=== PATIENT | male | born 1950 ===

== ENCOUNTER → 2024-07-28 11:42 | Outpatient (BNVA) | payer MEDICARE, SELFPAY | PROVIDERS: PCP Nurse Practitioner Acute Care; Referring Provider Nurse Practitioner Acute Care; Visit Provider Surgery | DX: R10.9 Unspecified abdominal pain (principal); K92.0 Hematemesis; K57.90 Diverticulosis of intestine, part unspecified, without perforation or abscess without bleeding; I10 Essential (primary) hypertension | CPT/HCPCS: 99203 ==

== ENCOUNTER 2024-07-28 12:54 | Outpatient (CLI) | payer MEDICARE, SELFPAY ==
[2024-07-28 13:01] LABS: Abs Immature Grans 0.01 10^3/uL (0.0-0.06); Absolute Basophil Count 0.03 10^3/uL (0.0-0.2); Absolute Eosinophil Count 0.06 10^3/uL (0.0-0.7); Absolute Lymphocyte Count 1.84 10^3/uL (1.2-3.4); Basophils % 0.7 %; Eosinophils % 1.4 %; HCT 36.2 % (40.0-50.0); HGB 12.7 g/dL (13.5-17.5); Immature Grans % 0.2 %; Lymphocytes % 43.4 %; MCH 33.5 pg (27.0-33.0); MCHC 35.1 % (32.0-36.0); MCV 96 fL (80-95); Monocytes % 9.4 %; Neutrophils % 44.9 %; Platelet Count 181 10^3/uL (130-400); RBC 3.79 10^6/uL (4.36-5.78); RDW 13.3 % (11.8-14.1); WBC 4.24 10^3/uL (4.4-10.8)
[2024-07-28 13:10] LABS: Prothrombin Time 10.4 sec (9.1-11.1)
[2024-07-28 13:35] LABS: ALT 28 U/L (16-63); AST 23 U/L (15-37); Albumin 3.7 g/dL (3.4-5.0); Alkaline Phosphatase 42 U/L (46-116); Anion Gap 11.2 mmol/L (3-11); BUN 15 mg/dL (7-18); Bilirubin, Total 0.82 mg/dL (0.2-1.0); CO2 24.8 mmol/L (21.0-32.0); CREATININE 1.1 mg/dL (0.70-1.30); Calcium 8.9 mg/dL (8.5-10.1); Chloride 108 mmol/L (98-107); Estimated GFR 70.01 (mL/min/1.73m2); Ferritin 415 ng/mL (26-388); Glucose 100 mg/dL (74-106); Magnesium 2.3 mg/dL (1.8-2.4); Potassium 4.3 mmol/L (3.5-5.1); Sodium 144 mmol/L (136-145); Total Protein 7.4 g/dL (6.4-8.2)
[2024-07-28 13:47] LABS: GGT 45 U/L (15-85)
== END 2024-07-28 12:55 | disposition home or self-care (01) ==
LOC: LBO 12:56
PROVIDERS: PCP Nurse Practitioner Acute Care; Visit Provider Surgery
DX: I10 Essential (primary) hypertension (principal); E53.8 Deficiency of other specified B group vitamins; K92.0 Hematemesis; K57.90 Diverticulosis of intestine, part unspecified, without perforation or abscess without bleeding; R10.9 Unspecified abdominal pain
CPT/HCPCS: 36415; 80053; 99203; 82728; 82977; 83735; 85025; 85610

== ENCOUNTER 2024-08-02 10:18 | Day surgery (SDC) | payer MEDICARE, SELFPAY ==
--- NOTE | 2024-08-01 21:21 | COLE_ITS ---
Date of service: 08/02/24 Time of Service: 15:36 Colonoscopy Report Date of procedure: 08/02/24 Pre-op diagnosis general: LLQ abdominal pain, C&D,mild anemia Post-op diagnosis procedure note: other (Diverticula and polyps) Surgeon: Cristal Dupree Anesthesia Type: General:No Airway Estimated blood loss (mL): 3 Pathology: other Complications: None Disposition: same day Prep: Miralax/Dulcolax Retraction Time: 27 Findings: After informed consent was obtained, explaining risks of the procedure, including but not limits to: bleeding, infections, complications of anesthesia, perforations (which may require antibiotics and /or surgery and stay in the hospital), and abdominal pain/cramping. The patient was taken to the procedure room and placed in a left decubitous position. Monitors were applied and a time out was done. The patients name, date of , procedure, allergies to medications and metal in their body was reviewed. The patient was then sedated. Once sedated and comfortable a rectal exam was done. External exam was normal. Internal exam revealed a normal sphincter tone and no palpable masses. The prostate bi-lobed nodulariy. F/u w/ Urology is reccomeneded. The previously lubricated Olympus scope was then introduced (see RN notes for scope number) and retrofelexed. No internal hemorrhoids were identified. The scope was then advanced to the cecum without difficulty. The TI and appendiceal orifice were identified. The scope was then slowly retracted over 27 minutes back into the rectum. Polyps: Had 13 polyps that we took out today. He had 4 polyps in the cecum. X 1 polyp was flat and 1 cm in size. 2 of the polyps were flat and 1.5 cm in size. The fourth polyp was flat and 0.5 cm in size. All of these polyps were removed with a cold snare. 2 clips are placed over the larger defects. And x 2 polyps at 90 cm. One of them was 1 cm pedunculated and this was removed with a cold snare. A clip was placed across the defect. There was 0.5 cm in size and flat. This is removed with a cold biopsy forcep. Had 2 polyps removed at 80 cm. One of them was 0.75 cm and pedunculated. This is removed with a cold snare. A clip was placed across the defect. Another is 0.5 cm in size. This is removed with a cold biting snare. He had a flat 0.5 cm polyp at 40 cm. This is removed with a cold biting forcep. He had 3 polyps in the rectum. 1 is 1 cm and pedunculated. This is removed with a cold snare. He had another this 0.75 cm in flat. This is removed with a cold snare. He had another that is 0.5 cm I am flat. This is removed with cold biting forcep. All specimens are retrieved and no bleeding is noted. Diverticula: pt had a moderate amount of small mouthed diverticula in the sigmoid colon. There were no signs of active bleeding or infection. The mucosa is pink and healthy w/ a normal vascular pattern. The scope was removed, and the patient was woken up and taken back to Same day surgery in stable condition. Patient did receive a dose of IV antibiotics in same-day surgery to prevent post-polypectomy syndrome. The patient tolerated the procedure well and there were no immediate complications. Follow up: The patient should follow up in 1-3 years, path pending, unless they develop changes in bowel habits or other new gastrointestinal complaints. Waterproof Bowel Prep Waterproof Bowel Prep Right Colon: 3 Left Colon: 3 Transverse Colon: 3 Total Score: 9
--- NOTE | 2024-08-01 21:24 | PDOC.DSDIS_ITS ---
Date of service: 08/02/24 Time of Service: 13:48 Discharge Plan Disposition Patient Disposition: Home Condition: Good Discharge Details Reason For Visit: stomach and colon scope Attending Provider: Cristal Dupree Primary Care Provider: Chito Alex Home Meds and New Rx's Prescriptions: Continued mecobalamin (vitamin B12) 1,000 mcg tablet,chewable 1,000 mcg PO DAILY lisinopril 10 mg tablet 10 mg PO DAILY Discontinued polyethylene glycol 3350 17 gram/dose powder 238 g PO ONCE Qty: 238 0RF Rx Instructions: take per colonoscopy instructions bisacodyl [Dulcolax (bisacodyl)] 5 mg tablet,delayed release (DR/EC) 5 mg PO ONCE Qty: 4 0RF Rx Instructions: take per colonoscopy instructions Discharge Instructions Additional Instructions: [facility] Colonoscopy Post- Op Instructions Instructions for Everyone who is given Anesthesia: For your safety, please do the following for the next twenty-four (24) hours: *Do Not operate a motor vehicle (car, truck, motorcycle, etc.) *Do Not drink alcoholic beverages or use any recreational drugs for the first 24 hours or while taking pain medications. The medications in your body may have a reaction that can be dangerous. *Do Not make any important decisions or sign any important papers. Findings: Hiatal hernia Diverticular disease-make sure you are moving your bowels and avoid straining. If you have problems with constipation/straining then we do recommend you start a fiber product daily such as Metamucil. Extensive polyposis- repeat colonoscopy in 2 to 3 years Nodule on prostate-recommend follow-up with urology 1. No lifting over 20 pounds or strenuous activity for the first 24 hours after your procedure. After 24 hours there are no restrictions on your activity but you may feel fatigued for a few days. 2. After you arrive home you may have a light meal and return to your normal diet as you can tolerate it without feeling sick to your stomach. 3. You may have a bloated, gaseous feeling in your belly (abdomen) after a colonoscopy. Passing gas and belching will help. Walking or lying down on your left side with your knees flexed may relieve the discomfort. Call the office at [phone] (Office) or [phone] (Hospital) right away if you notice any of the following: a.Vomiting of blood or ?coffee ground stools?. b.Rectal bleeding 1Tbsp, blood clots or continuous bleeding. c.Severe belly (abdominal) pain. d.A hard distended belly (abdomen) and an inability to pass gas. 4. Please don?t expect to have a normal BM (bowel movement) for 2-3 days after your procedure. 5. If there are questions regarding the findings of your procedure, please contact your doctor 6. If you are unable to contact your doctor with a problem, contact the hospital at [phone]. 7. Continue all your regular medications unless directed otherwise. I understand the above instructions and have no questions. Signature of Patient or Adult Escort Name of Responsible Adult Escort Signature of Nurse Date/Time Stand Alone Forms: Anesthesia Discharge Inst., Hank Lee ([facility]) Activity:: see above Diet:: see above Discharge Orders Discharge Orders: Discharge Order (Routine); Ordered 08/02/24 Ordered By: Cristal Dupree DS: Diagnosis Discharge Diagnosis (1) Hypertension: Status: Chronic (2) Diverticulosis: Status: Acute Asessment and Plan: The patient is seen and examined after their colonoscopy.? The patient has been able to pass gas.? They are not having abdominal pain.? They have been able to tolerate liquids and a snack.? They do not have any nausea or vomiting.? They are not having any chest pain or shortness of breath.??? They are not having any rectal bleeding. Their vital signs have been stable-see nursing notes. We discussed findings during their colonoscopy, and any biopsies that were done /polyps that were removed. The patient will be sent a letter with any biopsy results, and when to repeat the colonoscopy.-see discharge instructions. Patient was given explicit instructions to follow-up regarding colonoscopy-refer to discharge instructions.? We reviewed resumption of medications. Patient verbalized understanding and discharged in stable and satisfactory condition- See nursing notes. (3) Abdominal pain: Status: Acute (4) Hiatal hernia with GERD: Status: Acute (5) Adenomatous polyps: Status: Acute (6) Nodular prostate: Status: Acute
--- NOTE | 2024-08-01 21:27 | W.PM.ENDDOP ---
Date of service: 08/02/24 Time of Service: 15:32 Endoscopy Report DATE OF PROCEDURE: 08/02/24 PRE-OP DIAGNOSIS: abdominal pain and vomting POST-OP DIAGNOSIS: other (small hiatal hernia/mild esophagitis ) SURGEON: Cristal Dupree ANESTHESIA TYPE: General:No Airway ESTIMATED BLOOD LOSS: 1 PATHOLOGY: other COMPLICATIONS: None DISPOSITION: same day PROCEDURE DESCRIPTION: Informed consent was obtained from the pt; explaining the benefits and Risks: bleeding, infections, perforations {which could require surgery or antibiotics and prolonged hospital stay}, or ostomy, and complications of anaesthesia, maura aspiration). The patient was take to the procedure room and placed in a supine position. Monitors were applied and a time out was done. The patients name, date of , procedure type, allergies to medications and metal in their body was reviewed. A bite block was placed and the patient was sedated. Once sedated and comfortable an Olympus gastroscope (see RN notes for scope #) was advanced through the oropharynx which was grossly normal, and passed into the esophagus. The proximal and mid-esophagus were normal. The distal esophagus does not show any: dilation/strictures/varices/erosions or ulcers/bleeding noted. There is some mild esophagitis noted at the GE junction. The scope was advanced into the stomach and through the pylorus into the proximal jejunum. A bx is taken for celiac Dx . The duodenum was noted to be normal. Biopsies were done of the duodenal bulb.. The scope was retracted back into the stomach and biopsies were taken of the antrum. There were no gastritis/gastropathy/ ulcers/masses noted. The scope was retroflexed. The cardia and fundus were noted to be normal. There small 1cm sliding hiatal hernia noted. The scope was retracted back into the esophagus and biopsies were done of the GE junction (in all 4 quadrants) and distal esophagus (2cm above the GE junction) to rule out Hernandez's. All specimens are retrieved and no bleeding was noted. The Z line was irregular. The GE junction was at 38 cm. The scope was removed and the patient was woken up and taken back to [facility] in stable condition.
--- NOTE | 2024-08-02 10:34 | ANES.PREOP_ITS ---
General Info Date of Service Date Performed: 08/02/24 Height: 5 ft 6.5 in Weight: 77.564 kg Body Mass Index (BMI): 27.1 Surgical Procedure: Operation Date: 08/02/24 12:05 Proposed Procedure Side Surgeon p Colonoscopy/Gastroscopy Cristal Dupree DO Meds Allergies and Home Medications Allergies Allergy/AdvReac Type Severity Reaction Status Date / Time No Known Allergies Allergy Verified 08/02/24 10:40 Home Medication ?Medication ?Instructions ?Recorded lisinopril 10 mg tablet 10 mg PO DAILY 07/22/24 mecobalamin (vitamin B12) 1,000 1,000 mcg PO DAILY 07/27/24 mcg chewable tablet Current Visit Medications: Current Medications Generic Name Dose Route Start Last Admin Trade Name Freq PRN Reason Stop Dose Admin Hyoscyamine Sulfate 0.125 mg 08/02/24 09:21 Hyoscyamine 0.125 Mg Sl/Oral/Chew SL 09/01/24 09:20 DIRECTED PRN Ringer's Solution 1,000 mls @ 80 mls/hr 08/02/24 06:00 IV 08/02/24 23:59 INFUSION ZOLTAN IV Miscellaneous Supplies 1 each 08/02/24 06:00 Iv Access IV 08/02/24 23:59 DIRECTED ZOLTAN Ondansetron HCl 4 mg 08/02/24 09:21 Ondansetron 4 Mg/2 Ml Vial IVP 09/01/24 09:20 Q4H PRN PRN Nausea / Vomiting Sodium Chloride 0 ml 08/02/24 06:00 Normal Saline Flush 10 Ml Syr IV 08/02/24 23:59 PRN PRN Sodium Chloride 0 ml 08/02/24 06:00 Normal Saline 10 Ml Vial IJ 08/02/24 23:59 DIRECTED PRN Sterile Water 0 ml 08/02/24 06:00 Water,Injection,Sterile 10 Ml Vial IJ 08/02/24 23:59 DIRECTED PRN PFSH Active Problems Active Problems: Problem Status Onset Code Abdominal pain Acute R10.9 Vomiting of blood Acute K92.0 Diverticulosis Acute K57.90 Hypertension Chronic I10 Chronic recurrent sinusitis Acute J32.9 B12 deficiency Acute E53.8 Surgical History Surgical History (Updated 08/02/24 @ 10:40 by Benita Del Rosario RN) H/O right wrist surgery Tobacco Smoking/Tobacco Use Status: Never Alcohol Alcohol Intake: current Alcohol intake frequency: a few times a month Alcohol type: beer Substance Use Substance use: Never Substance use type: does not use Vital Signs and Lab Results Vital Signs Most Recent Vital Signs in EMR: Temp Pulse Resp BP Pulse Ox 36.2 C L 73 18 149/91 H 97 08/02/24 10:35 08/02/24 10:35 08/02/24 10:35 08/02/24 10:35 08/02/24 10:35 Lab Results Blood Type / Crossmatch: No Data to Display Complete Blood Count: White Blood Count 4.24 10^3/uL (4.4-10.8) L 07/28/24 12:50 Red Blood Count 3.79 10^6/uL (4.36-5.78) L 07/28/24 12:50 Hemoglobin 12.7 g/dL (13.5-17.5) L 07/28/24 12:50 Hematocrit 36.2 % (40.0-50.0) L 07/28/24 12:50 Platelet Count 181 10^3/uL (130-400) 07/28/24 12:50 Complete Metabolic Panel: Sodium 144 mmol/L (136-145) 07/28/24 12:50 Potassium 4.3 mmol/L (3.5-5.1) 07/28/24 12:50 Chloride 108 mmol/L (98-107) H 07/28/24 12:50 Carbon Dioxide 24.8 mmol/L (21.0-32.0) 07/28/24 12:50 BUN 15 mg/dL (7-18) 07/28/24 12:50 Creatinine 1.1 mg/dL (0.70-1.30) 07/28/24 12:50 Est GFR (CKD-EPI 2020) 70.01 (mL/min/1.73m2) 07/28/24 12:50 Magnesium 2.3 mg/dL (1.8-2.4) 07/28/24 12:50 Calcium 8.9 mg/dL (8.5-10.1) 07/28/24 12:50 Albumin 3.7 g/dL (3.4-5.0) 07/28/24 12:50 Glucose 100 mg/dL (74-106) 07/28/24 12:50 Liver Function Panel: Alanine Aminotransferase (ALT/SGPT) 28 U/L (16-63) 07/28/24 12: 50 Aspartate Amino Transf (AST/SGOT) 23 U/L (15-37) 07/28/24 12:50 Gamma Glutamyl Transpeptidase 45 U/L (15-85) 07/28/24 12:50 Coagulation Panel: INR International Normalized Ratio 1.0 (0.9-1.1) 07/28/24 12:5 0 Prothrombin Time 10.4 sec (9.1-11.1) 07/28/24 12:50 Cardiac Panel: No Data to Display Arterial Blood Gas: No Data to Display Venous Blood Gas: No Data to Display Pancreas Panel: No Data to Display Thyroid Panel: No Data to Display Infectious Disease: No Data to Display Blood Cultures: No Data to Display Toxicology Panel: No Data to Display Anesthesia Assessment and Plan Anesthesia History Personal History: No History of Anesthesia Complications Family History: No Family History of Anesthesia Complications Exercise Tolerance Exercise Tolerance: Metabolic Equivalents>4 Pertinent Negatives Pertinent Negatives: No Symptoms of GERD, No Major Pulmonary Symptoms or Complaints and No History of CVA/TIA Cardiac & Pulmonary Exam Cardiac Exam: Normal S1/S2 Heart Sounds Pulmonary Exam: Clear Bilateral Breath Sounds Implantable Cardiac Device Does patient have a Pacemaker or an ICD?: No Airway Exam Known Difficult Airway: No Mallampati Class: 3 Mouth Opening: Normal (> 3cm) Thyromental Distance: Greater than 3 cm Neck Range of Motion: Full ROM Neck Circumference: Normal Teeth Condition: Normal Dentition ASA Classification ASA Score: ASA 2 Emergency Case?: No NPO Status NPO Status: NPO Clears >2 hours, Solids >8 hours Anesthesia Plan Resuscitation Status: Full Code Anesthesia Technique: General Anesthesia Airway Planned: Natural Airway Monitors Used: Standard Monitors
[2024-08-02 10:35] VITALS: BP 149/91; PULSE 73; RESP 18; TEMP 36.2; O2SAT 97
[2024-08-02] MEDS: Normal Saline Flush 10 ML SYR IV ×2 (10:56→14:08)
[2024-08-02 12:08] VITALS: BMI 27.1
--- NOTE | 2024-08-02 12:20 | BOWEL_PTH ---
PATIENT: Jayesh Flanagan LOC: [facility] U#:[id number] AGE/SX: 73/M ROOM: RE08/02/[address]: Cristal Dupree : 1950 BED: DIS: 08/02/2024 SPEC #: [id number] RECD: 08/02/24 15:19 STATUS: JELANI RE #: [id number] CHER: 08/02/24 12:[address]: Cristal Dupree DEPT: Surgical Specimen RECD BY: Jen Coronado ENTERED: 08/02/24 15:21 SP TYPE: Bowel OTHR DR: Chito Alex Tissues: 1 - BIOPSY BOWEL 2 - BIOPSY BOWEL 3 - STOMACH BIOPSY 4 - STOMACH BIOPSY 5 - ESOPHAGUS BIOPSY 6 - ESOPHAGUS BIOPSY 7 - BIOPSY BOWEL 8 - BIOPSY BOWEL 9 - BIOPSY BOWEL 10 - BIOPSY BOWEL 11 - BIOPSY BOWEL 12 - BIOPSY BOWEL Procedures: GROSS AND MICRO LEVEL 4 Comments: [id number]
[2024-08-02 13:14] VITALS: BP 111/86; PULSE 68; RESP 18; TEMP 36.2; O2SAT 97
--- NOTE | 2024-08-02 13:38 | W.ANESPOSTOP ---
Postoperative Evaluation Date, Time and Location Date Performed: 08/02/24 Time Performed: 13:38 Patient Location: Day Surgery Unit Vital Signs Most Recent Imported Vital Signs: Most Recent Vital Signs Temp Pulse Resp BP Pulse Ox 36.2 C L 68 18 111/86 97 08/02/24 13:14 08/02/24 13:14 08/02/24 13:14 08/02/24 13:14 08/02/24 13:14 Pain Score Most Recent Pain Score: Most Recent Pain Score Pain Level 0 08/02/24 10:35 Assessment Mental Status: Awake (Alert & Oriented to Patient Baseline) Airway and Respiratory Function: Patent airway with normal (patient baseline) respiratory exam Cardiovascular Function: Hemodynamically Stable Hydration Status: Adequately Hydrated Nausea & Vomiting: No Nausea or Vomiting Pain: Pt. Denies Any Pain Peripheral Nerve Block: Patient did not receive a nerve block
[2024-08-02 13:44] VITALS: BP 153/81; PULSE 69; RESP 16; TEMP 36.8; O2SAT 98
[2024-08-02] MEDS: CIPROFLOXACIN 400 MG/200 ML BAG 200 MG IVPB (14:08)
[2024-08-02] MEDS: metroNIDAZOLE 500 MG/100 ML BAG 100 MG IVPB (14:08)
== END 2024-08-02 15:22 | disposition home or self-care (01) ==
LOC: SUR 10:19
PROVIDERS: PCP Nurse Practitioner Acute Care; Visit Provider Surgery
PROC: (CPT 45385; principal; 2024-08-02 12:00)
DX: I10 Essential (primary) hypertension (principal); K57.30 Diverticulosis of large intestine without perforation or abscess without bleeding; K44.9 Diaphragmatic hernia without obstruction or gangrene; K62.1 Rectal polyp; K63.5 Polyp of colon; K20.90 Esophagitis, unspecified without bleeding; D64.9 Anemia, unspecified; R10.32 Left lower quadrant pain; K22.89 Other specified disease of esophagus
CPT/HCPCS: 45385; 45380; 43239; 88305; 96365; J0744; J1836; J2704

== ENCOUNTER 2024-08-09 16:59 | Outpatient (CLI) | payer MEDICARE, SELFPAY ==
[2024-08-10 18:00] LABS: PSA, Diagnostic 3.3 ng/mL (<=6.5)
== END 2024-08-09 17:00 | disposition home or self-care (01) ==
LOC: LBO 16:59
PROVIDERS: PCP Nurse Practitioner Acute Care; Visit Provider Urology
DX: N40.2 Nodular prostate without lower urinary tract symptoms (principal)
CPT/HCPCS: 36415; 84153

== ENCOUNTER → 2024-09-08 14:34 | Outpatient (BNVA) | payer MEDICARE, SELFPAY | PROVIDERS: PCP Nurse Practitioner Acute Care; Referring Provider Nurse Practitioner Acute Care; Visit Provider Urology | DX: N40.2 Nodular prostate without lower urinary tract symptoms (principal) | CPT/HCPCS: 99215 ==

== ENCOUNTER → 2025-03-10 10:20 | Outpatient (BNVA) | payer MEDICARE, SELFPAY | PROVIDERS: PCP Nurse Practitioner; Visit Provider Urology | DX: N40.2 Nodular prostate without lower urinary tract symptoms (principal) | CPT/HCPCS: 99215 ==

== ENCOUNTER 2025-03-10 11:23 | Outpatient (CLI) | payer MEDICARE, SELFPAY ==
[2025-03-10 18:55] LABS: PSA, Diagnostic 2.8 ng/mL (<=6.5)
== END 2025-03-10 11:24 | disposition home or self-care (01) ==
LOC: LBO 11:23
PROVIDERS: PCP Nurse Practitioner; Visit Provider Urology
DX: N40.2 Nodular prostate without lower urinary tract symptoms (principal)
CPT/HCPCS: 36415; 99215; 84153

== ENCOUNTER → 2025-03-14 08:32 | Outpatient (BNVA) | payer MEDICARE, SELFPAY | PROVIDERS: PCP Nurse Practitioner; Referring Provider Nurse Practitioner; Visit Provider Urology | DX: N40.2 Nodular prostate without lower urinary tract symptoms (principal); Z87.442 Personal history of urinary calculi | CPT/HCPCS: 99213 ==

== ENCOUNTER → 2025-09-12 09:58 | Outpatient (BNVA) | payer MEDICARE, SELFPAY | PROVIDERS: PCP Nurse Practitioner; Referring Provider Nurse Practitioner; Visit Provider Urology | DX: N40.2 Nodular prostate without lower urinary tract symptoms (principal) | CPT/HCPCS: 99214 ==